=== PATIENT | male | born 1950 | race American Indian/Alaskan Native ===

== ENCOUNTER 2016-11-29 03:23 | Emergency (ER) | payer SELFPAY ==
[2016-11-29 03:32] VITALS: BP 160/100
[2016-11-29 04:05] LABS: Basophils % (Auto) 0.7 % (0.0-1.8); Eosinophils % (Auto) 1.4 % (0.0-4.3); Hematocrit 39.7 % (35.5-45.6); Hemoglobin 13.4 gm/dl (11.8-15.2); Mean Corpuscular HGB Conc 34 % (32-34); Mean Corpuscular Hemoglobin 32 pg (28-32); Mean Corpuscular Volume 95 fl (84-94); Platelet Count 210 K/mm3 (140-440); Red Cell Distribution Width 15.8 % (13.2-15.2); White Blood Count 5.9 K/mm3 (4.5-11.0)
[2016-11-29 04:07] LABS: Bilirubin,Urine NEG (Negative); Blood,Urine NEG (Negative); Ketones,Urine NEG (Negative); Leukocyte Esterase,Urine NEG (Negative); Mucus,Urine FEW /HPF; Nitrite,Urine NEG (Negative); Protein,Urine <15 mg/dL mg/dL (Negative); Urobilinogen,Urine < 2.0 mg/dL (<2.0)
[2016-11-29 04:11] LABS: Alanine Aminotransferase 101 units/L (7-56); Albumin 4.3 g/dL (3.9-5); Albumin/Globulin Ratio 1.3 %; Alkaline Phosphatase 86 units/L (35-129); Amylase 75 units/L (27-131); Anion Gap 21 mmol/L; Blood Urea Nitrogen 6 mg/dL (9-20); Calcium 8.8 mg/dL (8.4-10.2); Carbon Dioxide 23 mmol/L (22-30); Chloride 105.6 mmol/L (98-107); Glucose 110 mg/dL (75-100); Lipase 87 units/L (13-60); Potassium 4.7 mmol/L (3.6-5.0); Sodium 145 mmol/L (137-145); Total Protein 7.6 g/dL (6.3-8.2)
== END 2016-11-29 03:37 | disposition left against medical advice (07) ==
LOC: ED 03:23
DX: Z53.21 Procedure and treatment not carried out due to patient leaving prior to being seen by health care provider (principal)
CPT/HCPCS: 36415; 80053; 81001; 82150; 83690; 85025

== ENCOUNTER 2017-08-09 01:53 | Emergency (ER) | payer SELFPAY ==
[2017-08-09 02:54] VITALS: BP 139/87
[2017-08-09 03:22] LABS: Basophils # (Auto) 0.1 K/mm3 (0.0-0.1); Eosinophils # (Auto) 0.1 K/mm3 (0.0-0.4); Eosinophils % (Auto) 1.6 % (0.0-4.3); Hematocrit 41.3 % (35.5-45.6); Hemoglobin 13.7 gm/dl (11.8-15.2); Lymphocytes # (Auto) 2.7 K/mm3 (1.2-5.4); Lymphocytes % (Auto) 45.3 % (13.4-35.0); Mean Corpuscular HGB Conc 33 % (32-34); Mean Corpuscular Hemoglobin 32 pg (28-32); Mean Corpuscular Volume 96 fl (84-94); Monocytes # (Auto) 0.7 K/mm3 (0.0-0.8); Monocytes % (Auto) 11.1 % (0.0-7.3); Platelet Count 253 K/mm3 (140-440); Red Blood Count 4.32 M/mm3 (3.65-5.03); Red Cell Distribution Width 15.1 % (13.2-15.2)
[2017-08-09 03:57] LABS: Alanine Aminotransferase 94 units/L (7-56); Albumin 3.8 g/dL (3.9-5); BUN/Creatinine Ratio 12; Blood Urea Nitrogen 6 mg/dL (9-20); Calcium 8.7 mg/dL (8.4-10.2); Hemolysis Index 17
== END 2017-08-09 10:10 | disposition left against medical advice (07) ==
LOC: ED 01:53
DX: R10.9 Unspecified abdominal pain (principal); Z53.21 Procedure and treatment not carried out due to patient leaving prior to being seen by health care provider
CPT/HCPCS: 36415; 80053; 85025

== ENCOUNTER 2017-11-18 20:48 | Emergency (ER) | payer OTHER ==
[2017-11-18 21:05] VITALS: BP 125/91
[2017-11-18] MEDS ORDERED: ASPIRIN PO ONE (21:05)
[2017-11-18 21:25] LABS: Basophils # (Auto) 0.1 K/mm3 (0.0-0.1); Eosinophils # (Auto) 0.1 K/mm3 (0.0-0.4); Eosinophils % (Auto) 1.9 % (0.0-4.3); Hematocrit 38.4 % (35.5-45.6); Lymphocytes # (Auto) 2.7 K/mm3 (1.2-5.4); Lymphocytes % (Auto) 49.2 % (13.4-35.0); Mean Corpuscular HGB Conc 34 % (32-34); Mean Corpuscular Hemoglobin 32 pg (28-32); Mean Corpuscular Volume 96 fl (84-94); Monocytes # (Auto) 0.5 K/mm3 (0.0-0.8); Monocytes % (Auto) 9.4 % (0.0-7.3); Platelet Count 215 K/mm3 (140-440); Red Blood Count 4.02 M/mm3 (3.65-5.03); Red Cell Distribution Width 14.8 % (13.2-15.2)
[2017-11-18 21:46] LABS: BUN/Creatinine Ratio 9; Blood Urea Nitrogen 7 mg/dL (9-20); Calcium 9.2 mg/dL (8.4-10.2); Hemolysis Index 7
[2017-11-19] MEDS ORDERED: NORCO 5/325 PO ONE (01:43)
[2017-11-19] MEDS ORDERED: ASPIRIN ONE (01:52)
--- NOTE | 2017-11-19 02:33 | XRay Report ---
FINAL REPORT PROCEDURE: XR CHEST ROUTINE 2V TECHNIQUE: PA and lateral chest radiographs were obtained. CPT 26248 HISTORY: chest pain COMPARISON: No prior studies are available for comparison. FINDINGS: Heart: Normal. Mediastinum/Vessels: Normal. Lungs/Pleural space: Normal. Bony thorax: No acute osseous abnormality. Other: IMPRESSION: Normal examination.
--- NOTE | 2017-11-19 03:17 | Emergency Department Report ---
ED Chest Pain HPI - General Chief Complaint: Chest Pain Stated Complaint: CHEST,FOOT PAIN Time Seen by Provider: 11/19/17 01:40 Source: patient Mode of arrival: Ambulatory Limitations: No Limitations - History of Present Illness Initial Comments: Patient's a 67-year-old -Tong[place] male who presents with left neck pain radiating to left arm 1 month worsening over the past 3 days patient denies chest pain or shortness of breath no back pain and numbness denies fall injury or trauma pain described as 17 in spasm as "it gets so tight it feels like something is living in there" pain is exacerbated by movement and palpation pain is relieved by nothing child MD Complaint: chest pain Onset/Timin -: Gradual, month(s) Onset: during rest, awoke with symptoms Pain Location: left chest (left chest wall ) Pain Radiation: LUE, neck Severity: moderate Severity scale (0 -10): 3 Quality: tightness Consistency: intermittent Improves With: nothing Worsens With: palpation, movement re: denies: nausea, vomting, diaphoresis, dyspnea, sense of impending doom Other Symptoms: denies: cough, fever, syncope, acid taste in mouth, leg swelling , palpitations, burping Aspirin use within the Past 7 Days: (0) No - Related Data Previous Rx's Medication Instructions Recorded Last Taken Type Amoxicillin [Amoxicillin TAB] 875 mg PO BID #20 tablet 11/29/14 Unknown Rx Ranitidine HCl [Zantac 150 MG TAB] 150 mg PO Q12H #60 tablet 01/04/15 Unknown Rx Famotidine [Pepcid] 20 mg PO BID #30 tablet 09/04/15 Unknown Rx amLODIPine [Norvasc] 5 mg PO DAILY #15 tab 09/04/15 Unknown Rx Cyclobenzaprine [Flexeril] 10 mg PO TID PRN #20 tablet 06/06/16 Unknown Rx HYDROcodone/ACETAMINOPHEN [Vicodin 1 tab PO BID PRN #20 tablet 06/06/16 Unknown Rx HP 10-300 mg TAB] Acetaminophen [Tylenol] 975 mg PO QID PRN #60 capsule 11/19/17 Unknown Rx Cyclobenzaprine [Flexeril] 10 mg PO TID PRN #30 tablet 11/19/17 Unknown Rx Menthol/Camphor [[place] 1 applicatio TP TID PRN #1 tube 11/19/17 Unknown Rx Ointment] Allergies Allergy/AdvReac Type Severity Reaction Status Date / Time No Known Allergies Allergy Verified 08/09/17 02:54 Heart Score - HEART Score History: Slightly suspicious EKG: Normal Age: > 65 Risk factors: 1-2 risk factors Troponin: < normal limit HEART Score: 3 ED Review of Systems ROS: Stated complaint: CHEST,FOOT PAIN Other details as noted in HPI Constitutional: denies: chills, fever Eyes: denies: eye pain, eye discharge, vision change ENT: denies: ear pain, throat pain Respiratory: denies: cough, shortness of breath, wheezing Cardiovascular: chest pain Endocrine: no symptoms reported Gastrointestinal: denies: abdominal pain, nausea, diarrhea Genitourinary: denies: urgency, dysuria Musculoskeletal: myalgia. denies: back pain, joint swelling, arthralgia Skin: denies: rash, lesions Neurological: denies: headache, weakness, paresthesias Psychiatric: anxiety. denies: depression Hematological/Lymphatic: denies: easy bleeding, easy bruising ED Past Medical Hx - Past Medical History Hx Renal Disease: Yes (pt denies at present) Additional medical history: Alcoholism,gout - Surgical History Past Surgical History?: No - Family History Family history: hypertension - Social History Smoking Status: Current Every Day Smoker Substance Use Type: Alcohol - Medications Home Medications: Home Medications Medication Instructions Recorded Confirmed Last Taken Type Amoxicillin [Amoxicillin TAB] 875 mg PO BID #20 tablet 11/29/14 Unknown Rx Ranitidine HCl [Zantac 150 MG TAB] 150 mg PO Q12H #60 tablet 01/04/15 Unknown Rx Famotidine [Pepcid] 20 mg PO BID #30 tablet 09/04/15 Unknown Rx amLODIPine [Norvasc] 5 mg PO DAILY #15 tab 09/04/15 Unknown Rx Cyclobenzaprine [Flexeril] 10 mg PO TID PRN #20 tablet 06/06/16 Unknown Rx HYDROcodone/ACETAMINOPHEN [Vicodin 1 tab PO BID PRN #20 tablet 06/06/16 Unknown Rx HP 10-300 mg TAB] Acetaminophen [Tylenol] 975 mg PO QID PRN #60 capsule 11/19/17 Unknown Rx Cyclobenzaprine [Flexeril] 10 mg PO TID PRN #30 tablet 11/19/17 Unknown Rx Menthol/Camphor [[place] 1 applicatio TP TID PRN #1 tube 11/19/17 Unknown Rx Ointment] ED Physical Exam - General Limitations: No Limitations General appearance: alert, in no apparent distress - Head Head exam: Present: atraumatic, normocephalic - Eye Eye exam: Present: normal appearance, PERRL Pupils: Present: normal accommodation - ENT ENT exam: Present: normal orophraynx, mucous membranes moist, TM's normal bilaterally. Absent: normal external ear exam - Neck Neck exam: Present: normal inspection, tenderness (left posterior lateral neck muscle pain ), full ROM. Absent: meningismus, lymphadenopathy, thyromegaly - Expanded Neck Exam Expanded Neck exam: Present: tenderness (no posterior vertebral point tenderness rom intact including chin to chest bilat shoulders and f ull neck extension wtihth out). Absent: midline deformity, anterior neck swelling, thyroid mass, carotid bruit, tracheal deviation - Respiratory Respiratory exam: Present: normal lung sounds bilaterally, chest wall tenderness (left lateral chest wall tenderness no stepoff no crepius no ). Absent: respiratory distress, wheezes, stridor, accessory muscle use - Cardiovascular Cardiovascular Exam: Present: regular rate, normal rhythm, normal heart sounds. Absent: systolic murmur, diastolic murmur, rubs, gallop - GI/Abdominal GI/Abdominal exam: Present: soft, normal bowel sounds. Absent: tenderness, rebound, bruit, hernia - Rectal Rectal exam: Present: deferred - Extremities Exam Extremities exam: Present: normal inspection, full ROM, normal capillary refill. Absent: tenderness, pedal edema, joint swelling, calf tenderness - Expanded Upper Extremity Exam Left Shoulder Exam: Present: normal inspection, full ROM. Absent: tenderness, swelling, abrasion, laceration, ecchymosis, deformity, crepidus, dislocation, erythema, tenderness over AC joint Neuro motor exam: Present: wrist extension intact, thumb opposition intact, thumb IP flexion intact, thumb adduction intact, fingers 2-5 abduction intact Neurosensory exam: Present: 2-point discrimination, radial nerve intact, ulnar nerve intact, median nerve intact Vascular: Present: normal capillary refill, radial pulse, brachial pulse, ulnar pulse. Absent: vascular compromise, Pallo, pulse deficit radial art, pulse deficit ulnar art, pulse deficit brachial art - Back Exam Back exam: Present: normal inspection, full ROM. Absent: tenderness, CVA tenderness (R), CVA tenderness (L), muscle spasm, paraspinal tenderness, vertebral tenderness, rash noted - Neurological Exam Neurological exam: Present: alert, oriented X3, CN II-XII intact, normal gait, reflexes normal. Absent: motor sensory deficit - Psychiatric Psychiatric exam: Present: normal affect, normal mood - Skin Skin exam: Present: warm, dry, intact, normal color. Absent: rash ED Course Vital Signs 11/18/17 11/18/17 20:57 21:00 Temperature 98.8 F 98.8 F Pulse Rate 92 H 98 H Respiratory 18 18 Rate Blood Pressure 125/91 125/91 O2 Sat by Pulse 97 97 Oximetry RACHEL score - Rachel Score Age > 65: (1) Yes Aspirin use within the Past 7 Days: (0) No 3 or more CAD Risk Factors: (1) Yes 2 or more Angina events in past 24 hrs: (0) No Known CAD with more than 50% Stenosis: (0) No Elevated Cardiac Markers: (0) No ST Deviation Greater than 0.5mm: (0) No RACHEL Score: 2 ED Medical Decision Making - Lab Data Result diagrams: 11/18/17 21:15 11/18/17 21:15 - Radiology Data Radiology results: report reviewed, image reviewed no opacities no infiltrates - Medical Decision Making His neck spasm cardiac enzymes negative 2 less than 0.01 chest x-ray normal opacities no infiltrates EKG normal sinus rhythm no ST elevated CO pain is improved to 2/10 plan DC home prescriptions for NSAIDs muscle relaxants moist heat therapy patient will follow-up was also a [facility] in 2-3 days continue Tegretol other medications as prescribed patient verbalizes agreement and understanding same will be DC'd to home in stable condition at this time Critical care attestation.: If time is entered above; I have spent that time in minutes in the direct care of this critically ill patient, excluding procedure time. ED Disposition Clinical Impression: Chest wall pain, Neck muscle spasm Disposition: DC-01 TO HOME OR SELFCARE Is pt being admited?: No Does the pt Need Aspirin: No Condition: Good Instructions: Chest Pain (ED), Muscle Spasm (ED) Prescriptions: Acetaminophen [Tylenol] 975 mg PO QID PRN #60 capsule PRN Reason: Pain , Severe (7-10) Cyclobenzaprine [Flexeril] 10 mg PO TID PRN #30 tablet PRN Reason: Neck spasm Menthol/Camphor [[place] Ointment] 1 applicatio TP TID PRN #1 tube PRN Reason: pain Referrals: [facility] [Outside] - 3-5 Days Forms: Work/School Release Form(ED) Time of Disposition: 03:34
== END 2017-11-19 03:46 | disposition home or self-care (01) ==
LOC: ED 20:48
DX: M62.838 Other muscle spasm (principal); R07.89 Other chest pain; F17.200 Nicotine dependence, unspecified, uncomplicated; M10.9 Gout, unspecified; F10.20 Alcohol dependence, uncomplicated; Y90.9 Presence of alcohol in blood, level not specified
CPT/HCPCS: 36415; 71046; 80048; 84484; 85025; 93005; 93010; 99284

== ENCOUNTER 2017-12-26 14:47 | Emergency (ER) | payer SELFPAY ==
[2017-12-26 16:18] LABS: Hematocrit 35.6 % (35.5-45.6); Hemoglobin 11.9 gm/dl (11.8-15.2); Mean Corpuscular HGB Conc 34 % (32-34); Mean Corpuscular Hemoglobin 32 pg (28-32); Mean Corpuscular Volume 96 fl (84-94); Platelet Count 209 K/mm3 (140-440); Red Cell Distribution Width 15.3 % (13.2-15.2)
--- NOTE | 2017-12-26 16:30 | Emergency Department Report ---
ED Alcohol HPI - General Chief Complaint: Alcohol Stated Complaint: FALL/HEAD INJURY Time Seen by Provider: 12/26/17 16:29 Source: patient, EMS Mode of arrival: Stretcher Limitations: No Limitations - History of Present Illness Initial Comments: Patient can to the emergency room with left facial laceration after he fell today. He has been drinking alcohol and now he is drunk. 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 Previous Visits for Alcohol Intoxication?: Yes Recent Trauma: Yes Associated Symptoms: denies: nausea, vomiting, syncope Treatments Prior to Arrival: none - Related Data Previous Rx's Medication Instructions Recorded Last Taken Type Amoxicillin [Amoxicillin TAB] 875 mg PO BID #20 tablet 11/29/14 Unknown Rx Ranitidine HCl [Zantac 150 MG TAB] 150 mg PO Q12H #60 tablet 01/04/15 Unknown Rx Famotidine [Pepcid] 20 mg PO BID #30 tablet 09/04/15 Unknown Rx amLODIPine [Norvasc] 5 mg PO DAILY #15 tab 09/04/15 Unknown Rx Cyclobenzaprine [Flexeril] 10 mg PO TID PRN #20 tablet 06/06/16 Unknown Rx HYDROcodone/ACETAMINOPHEN [Vicodin 1 tab PO BID PRN #20 tablet 06/06/16 Unknown Rx HP 10-300 mg TAB] Acetaminophen [Tylenol] 975 mg PO QID PRN #60 capsule 11/19/17 Unknown Rx Cyclobenzaprine [Flexeril] 10 mg PO TID PRN #30 tablet 11/19/17 Unknown Rx Menthol/Camphor [[place] 1 applicatio TP TID PRN #1 tube 11/19/17 Unknown Rx Ointment] cephALEXin [Keflex] 500 mg PO Q8HR #21 cap 12/26/17 Unknown Rx Allergies Allergy/AdvReac Type Severity Reaction Status Date / Time No Known Allergies Allergy Verified 08/09/17 02:54 ED Review of Systems ROS: Stated complaint: FALL/HEAD INJURY Other details as noted in HPI Comment: All other systems reviewed and negative Constitutional: denies: chills, fever Eyes: denies: eye pain ENT: denies: ear pain Respiratory: denies: cough, shortness of breath, SOB with exertion, SOB at rest Cardiovascular: denies: chest pain, palpitations, dyspnea on exertion Endocrine: no symptoms reported Gastrointestinal: denies: abdominal pain, nausea, vomiting, diarrhea Genitourinary: denies: urgency, dysuria, frequency Musculoskeletal: denies: back pain Skin: as per HPI, other (Facial Laceration). denies: rash Neurological: denies: headache, weakness, numbness, paresthesias Psychiatric: denies: anxiety, depression Hematological/Lymphatic: denies: easy bleeding, easy bruising ED Past Medical Hx - Past Medical History Previous Medical History?: Yes Hx Renal Disease: Yes (pt denies at present) Additional medical history: Alcoholism,gout - Social History Smoking Status: Current Every Day Smoker Substance Use Type: Alcohol - Medications Home Medications: Home Medications Medication Instructions Recorded Confirmed Last Taken Type Amoxicillin [Amoxicillin TAB] 875 mg PO BID #20 tablet 11/29/14 Unknown Rx Ranitidine HCl [Zantac 150 MG TAB] 150 mg PO Q12H #60 tablet 01/04/15 Unknown Rx Famotidine [Pepcid] 20 mg PO BID #30 tablet 09/04/15 Unknown Rx amLODIPine [Norvasc] 5 mg PO DAILY #15 tab 09/04/15 Unknown Rx Cyclobenzaprine [Flexeril] 10 mg PO TID PRN #20 tablet 06/06/16 Unknown Rx HYDROcodone/ACETAMINOPHEN [Vicodin 1 tab PO BID PRN #20 tablet 06/06/16 Unknown Rx HP 10-300 mg TAB] Acetaminophen [Tylenol] 975 mg PO QID PRN #60 capsule 11/19/17 Unknown Rx Cyclobenzaprine [Flexeril] 10 mg PO TID PRN #30 tablet 11/19/17 Unknown Rx Menthol/Camphor [[place] 1 applicatio TP TID PRN #1 tube 11/19/17 Unknown Rx Ointment] cephALEXin [Keflex] 500 mg PO Q8HR #21 cap 12/26/17 Unknown Rx ED Physical Exam - General Limitations: No Limitations General appearance: in no apparent distress, lethargic - Head Head exam: Present: other (Left facial laceration) - Eye Eye exam: Present: normal appearance, PERRL, EOMI Pupils: Present: normal accommodation - ENT ENT exam: Present: normal exam, normal orophraynx, mucous membranes moist - Neck Neck exam: Present: normal inspection, tenderness, full ROM - Respiratory Respiratory exam: Present: normal lung sounds bilaterally. Absent: respiratory distress, wheezes, rales, rhonchi, stridor - Cardiovascular Cardiovascular Exam: Present: regular rate, normal rhythm, normal heart sounds - GI/Abdominal GI/Abdominal exam: Present: soft, normal bowel sounds. Absent: distended, tenderness, guarding, rebound, rigid - Extremities Exam Extremities exam: Present: normal inspection, full ROM, normal capillary refill. Absent: tenderness - Back Exam Back exam: Present: normal inspection, full ROM. Absent: tenderness - Neurological Exam Neurological exam: Present: alert, oriented X3 - Psychiatric Psychiatric exam: Present: normal affect, normal mood - Skin Skin exam: Present: warm, dry, normal color, other (4 cm Left facial laceration. ). Absent: rash ED Course Vital Signs 12/26/17 12/26/17 12/26/17 14:57 16:00 17:00 Temperature 97.6 F Pulse Rate 78 Respiratory 16 Rate Blood Pressure 107/74 122/80 116/71 O2 Sat by Pulse 99 100 Oximetry 12/26/17 20:06 Temperature Pulse Rate 76 Respiratory 16 Rate Blood Pressure 129/86 O2 Sat by Pulse Oximetry - Reevaluation(s) Reevaluation #1: 12/26/17 21:53 Patient is awake and coherent in the ED. He was able to answer all my questions. He is clinically sober from my medical examination. He will be discharged home in the custody of his Costume Designer. I strongly encouraged him to stop drinking alcohol. - Laceration /Wound Repair Left Upper Face Wound Location: face Wound Length (cm): 4 Wound's Depth, Shape: superficial Wound Explored: clean Irrigated w/ Saline (ccs): 250 Betadine Prep?: Yes Anesthesia: Lidocaine w/ Epi Volume Anesthetic (ccs): 4 Wound Debrided: None Wound Repaired With: sutures Suture Size/Type: 4:0, proline Number of Sutures: 5 Layer Closure?: No Sterile Dressing Applied?: Yes (Bacitracin Ointment) ED Medical Decision Making - Lab Data Result diagrams: 12/26/17 16:08 12/26/17 16:08 Lab Results 12/26/17 12/26/17 12/26/17 Range/Units 15:00 15:00 16:08 WBC 5.5 (4.5-11.0) K/mm3 RBC 3.70 (3.65-5.03) M/mm3 Hgb 11.9 (11.8-15.2) gm/dl Hct 35.6 (35.5-45.6) % MCV 96 H (84-94) fl MCH 32 (28-32) pg MCHC 34 (32-34) % RDW 15.3 H (13.2-15.2) % Plt Count 209 (140-440) K/mm3 PT (12.2-14.9) Sec. INR (0.87-1.13) APTT (24.2-36.6) Sec. Sodium (137-145) mmol/L Potassium (3.6-5.0) mmol/L Chloride (98-107) mmol/L Carbon Dioxide (22-30) mmol/L Anion Gap mmol/L BUN (9-20) mg/dL Creatinine (0.8-1.5) mg/dL Estimated GFR ml/min BUN/Creatinine Ratio % Glucose (75-100) mg/dL Calcium (8.4-10.2) mg/dL Total Bilirubin (0.1-1.2) mg/dL Direct Bilirubin (0-0.2) mg/dL Indirect Bilirubin mg/dL AST (5-40) units/L ALT (7-56) units/L Alkaline Phosphatase (35-129) units/L Total Protein (6.3-8.2) g/dL Albumin (3.9-5) g/dL Albumin/Globulin Ratio % Urine Color Yellow (Yellow) Urine Turbidity Clear (Clear) Urine pH 5.0 (5.0-7.0) Ur Specific [place] 1.004 (1.003-1.030) Urine Protein <15 mg/dl (Negative) mg/dL Urine Glucose (UA) Neg (Negative) mg/dL Urine Ketones Neg (Negative) mg/dL Urine Blood Neg (Negative) Urine Nitrite Neg (Negative) Urine Bilirubin Neg (Negative) Urine Urobilinogen < 2.0 (<2.0) mg/dL Ur Leukocyte Esterase Neg (Negative) Urine WBC (Auto) < 1.0 (0.0-6.0) /HPF Urine RBC (Auto) 1.0 (0.0-6.0) /HPF Urine Mucus Few /HPF Urine Opiates Screen Presumptive negative Urine Methadone Screen Presumptive negative Ur Barbiturates Screen Presumptive negative Ur Phencyclidine Scrn Presumptive negative Ur Amphetamines Screen Presumptive negative U Benzodiazepines Scrn Presumptive negative Urine Cocaine Screen Presumptive negative U Marijuana (THC) Screen Presumptive negative Drugs of Abuse Note Disclamer Plasma/Serum Alcohol (0-0.07) % 12/26/17 12/26/17 12/26/17 Range/Units 16:08 16:08 17:19 WBC (4.5-11.0) K/mm3 RBC (3.65-5.03) M/mm3 Hgb (11.8-15.2) gm/dl Hct (35.5-45.6) % MCV (84-94) fl MCH (28-32) pg MCHC (32-34) % RDW (13.2-15.2) % Plt Count (140-440) K/mm3 PT 13.2 (12.2-14.9) Sec. INR 0.95 (0.87-1.13) APTT 25.7 (24.2-36.6) Sec. Sodium 139 (137-145) mmol/L Potassium 3.4 L (3.6-5.0) mmol/L Chloride 103.0 (98-107) mmol/L Carbon Dioxide 21 L (22-30) mmol/L Anion Gap 18 mmol/L BUN 8 L (9-20) mg/dL Creatinine 0.5 L (0.8-1.5) mg/dL Estimated GFR > 60 ml/min BUN/Creatinine Ratio 16 % Glucose 117 H (75-100) mg/dL Calcium 8.5 (8.4-10.2) mg/dL Total Bilirubin (0.1-1.2) mg/dL Direct Bilirubin (0-0.2) mg/dL Indirect Bilirubin mg/dL AST (5-40) units/L ALT (7-56) units/L Alkaline Phosphatase (35-129) units/L Total Protein (6.3-8.2) g/dL Albumin (3.9-5) g/dL Albumin/Globulin Ratio % Urine Color (Yellow) Urine Turbidity (Clear) Urine pH (5.0-7.0) Ur Specific [place] (1.003-1.030) Urine Protein (Negative) mg/dL Urine Glucose (UA) (Negative) mg/dL Urine Ketones (Negative) mg/dL Urine Blood (Negative) Urine Nitrite (Negative) Urine Bilirubin (Negative) Urine Urobilinogen (<2.0) mg/dL Ur Leukocyte Esterase (Negative) Urine WBC (Auto) (0.0-6.0) /HPF Urine RBC (Auto) (0.0-6.0) /HPF Urine Mucus /HPF Urine Opiates Screen Urine Methadone Screen Ur Barbiturates Screen Ur Phencyclidine Scrn Ur Amphetamines Screen U Benzodiazepines Scrn Urine Cocaine Screen U Marijuana (THC) Screen Drugs of Abuse Note Plasma/Serum Alcohol 0.38 H (0-0.07) % 12/26/17 Range/Units 18:11 WBC (4.5-11.0) K/mm3 RBC (3.65-5.03) M/mm3 Hgb (11.8-15.2) gm/dl Hct (35.5-45.6) % MCV (84-94) fl MCH (28-32) pg MCHC (32-34) % RDW (13.2-15.2) % Plt Count (140-440) K/mm3 PT (12.2-14.9) Sec. INR (0.87-1.13) APTT (24.2-36.6) Sec. Sodium (137-145) mmol/L Potassium (3.6-5.0) mmol/L Chloride (98-107) mmol/L Carbon Dioxide (22-30) mmol/L Anion Gap mmol/L BUN (9-20) mg/dL Creatinine (0.8-1.5) mg/dL Estimated GFR ml/min BUN/Creatinine Ratio % Glucose (75-100) mg/dL Calcium (8.4-10.2) mg/dL Total Bilirubin 0.40 (0.1-1.2) mg/dL Direct Bilirubin < 0.2 (0-0.2) mg/dL Indirect Bilirubin 0.2 mg/dL AST 409 H (5-40) units/L ALT 348 H (7-56) units/L Alkaline Phosphatase 118 (35-129) units/L Total Protein 7.0 (6.3-8.2) g/dL Albumin 3.9 (3.9-5) g/dL Albumin/Globulin Ratio 1.3 % Urine Color (Yellow) Urine Turbidity (Clear) Urine pH (5.0-7.0) Ur Specific [place] (1.003-1.030) Urine Protein (Negative) mg/dL Urine Glucose (UA) (Negative) mg/dL Urine Ketones (Negative) mg/dL Urine Blood (Negative) Urine Nitrite (Negative) Urine Bilirubin (Negative) Urine Urobilinogen (<2.0) mg/dL Ur Leukocyte Esterase (Negative) Urine WBC (Auto) (0.0-6.0) /HPF Urine RBC (Auto) (0.0-6.0) /HPF Urine Mucus /HPF Urine Opiates Screen Urine Methadone Screen Ur Barbiturates Screen Ur Phencyclidine Scrn Ur Amphetamines Screen U Benzodiazepines Scrn Urine Cocaine Screen U Marijuana (THC) Screen Drugs of Abuse Note Plasma/Serum Alcohol (0-0.07) % - Radiology Data Radiology results: report reviewed, image reviewed I reviewed the CT scan of the head and cervical spine and also the chest x-ray. The imaging studies shows no acute findings. - Medical Decision Making Patient presented to the ED with fall after being drunk. His evaluation showed that he sustained a left facial laceration which was repaired in the ED. Imaging studies were negative. Patient was given banana bag, IV fluids, antibiotics and his tetanus was updated. He woke up he was coherent and was able to walk in a straight line. The patient Costume Designer came to the emergency room to take him home to his . He will be discharged in the custody of his Costume Designer in a stable medical condition. Critical Care Time: Yes Critical care time in (mins) excluding proc time.: 45 Critical care attestation.: If time is entered above; I have spent that time in minutes in the direct care of this critically ill patient, excluding procedure time. ED Disposition Clinical Impression: Alcohol abuse Alcohol intoxication Qualifiers: Complication of substance-induced condition: uncomplicated Qualified Code(s): F10.920 - Alcohol use, unspecified with intoxication, uncomplicated Face lacerations Qualifiers: Encounter type: initial encounter Qualified Code(s): S01.81XA - Laceration without foreign body of other part of head, initial encounter Disposition: DC-01 TO HOME OR SELFCARE Is pt being admited?: No Does the pt Need Aspirin: No Condition: Stable Instructions: Suture Care (ED), Laceration (ED), Alcohol Intoxication (ED), Abuse of Alcohol (ED) Additional Instructions: Please follow up with Dr Catie Mederos in 3 days for wound check or return to the ED for wound check. Return to the ED if your condition worsens. Prescriptions: cephALEXin [Keflex] 500 mg PO Q8HR #21 cap Referrals: PRIMARY CARE, [Primary Care Provider] - 3-5 Days MITALI MEDEROS MD [Staff Physician] - 3-5 Days Time of Disposition: 21:45
[2017-12-26 16:37] LABS: BUN/Creatinine Ratio 16; Blood Urea Nitrogen 8 mg/dL (9-20); Calcium 8.5 mg/dL (8.4-10.2); Hemolysis Index 11
[2017-12-26 16:58] LABS: Bilirubin,Urine NEG (Negative); Blood,Urine NEG (Negative); Color,Urine Yellow (Yellow); Mucus,Urine FEW /HPF; Protein,Urine <15 mg/dL mg/dL (Negative); Urobilinogen,Urine < 2.0 mg/dL (<2.0); WBC,Urine < 1.0 /HPF (0.0-6.0)
[2017-12-26 17:05] LABS: Amphetamine Screen,Urine PRESUMPTIVE NEGATIVE; Benzodiazepines Screen,Urine PRESUMPTIVE NEGATIVE; Cannabinoid Screen,Urine PRESUMPTIVE NEGATIVE; Cocaine Screen,Urine PRESUMPTIVE NEGATIVE; Methadone Screen,Urine PRESUMPTIVE NEGATIVE; Opiate Screen,Urine PRESUMPTIVE NEGATIVE
[2017-12-26] MEDS ORDERED: VITAMIN B-1 100 MG, FOLVITE 1 MG, INFUVITE 10 ML in NACL 0.9% 1000 ML 1,000 ML IV ONE (17:08)
[2017-12-26] MEDS ORDERED: NACL 0.9% 1000 ML 1,000 ML IV ONE (17:10)
[2017-12-26] MEDS ORDERED: POLYSPORIN TP ONE (17:11)
--- NOTE | 2017-12-26 17:43 | XRay Report ---
FINAL REPORT EXAM: XR CHEST 1V AP HISTORY: cough TECHNIQUE: Single, portable chest x-ray. PRIORS: 19 November 2017. FINDINGS: Patient rotated to the right. Cardiac and mediastinal silhouette within normal limits. Lungs are hypoinflated, with probable mild bibasilar atelectasis or scarring. No significant vascular congestion, focal consolidation or apparent pneumothorax. Bony thorax grossly unremarkable. IMPRESSION: 1. Hypoinflation. No acute consolidation.
[2017-12-26 17:48] LABS: INR 0.95 (0.87-1.13); Partial Thromboplastin Time 25.7 Sec. (24.2-36.6)
[2017-12-26] MEDS ORDERED: XYLOCAINE 1%/ EPI 1:100,000 INFILTRATI NR (18:00)
[2017-12-26] MEDS ORDERED: BOOSTRIX IM ONE ×2 (18:00→20:54)
[2017-12-26] MEDS ORDERED: NACL 0.9% 500 ML IR ONE (18:05)
--- NOTE | 2017-12-26 18:29 | Cat Scan Report ---
FINAL REPORT EXAM: CT HEAD/BRAIN WO CON HISTORY: Head injury TECHNIQUE: Noncontrast CT axial images of the brain. PRIORS: None. FINDINGS: No parenchymal mass, mass effect, hemorrhage, midline shift or hydrocephalus. No evidence of acute cortical infarct. No abnormal, extra-axial fluid or air collection. Mild, patchy low density in the periventricular and subcortical white matter is nonspecific, but may relate to chronic small vessel ischemic change. More focal encephalomalacic change in the bilateral subfrontal regions of gyrus recti. Mild-moderate volume loss. Osseous calvarium grossly intact. IMPRESSION: 1. No acute intracranial findings. 2. Chronic ischemic and atrophic changes.
[2017-12-26] MEDS ORDERED: ANCEF/NS 1 GM/50 ML 1 GM/50 ML BAG IV ONE (18:30)
--- NOTE | 2017-12-26 18:31 | Cat Scan Report ---
FINAL REPORT EXAM: CT CERVICAL SPINE WO CON HISTORY: Fall, neck pain TECHNIQUE: Spiral CT scanning of the cervical spine, with axial images and multiplanar reformations. PRIORS: None. FINDINGS: Multilevel degenerative disc disease and spondylosis. No acute compression deformity or gross malalignment of cervical vertebral bodies. No acute fracture identified. No acute, osseous central spinal canal encroachment. Paraspinal soft tissues grossly unremarkable. Emphysematous change in the visualized upper lungs. IMPRESSION: 1. No acute compression deformity or apparent fracture in the cervical spine. 2. Degenerative spondylosis.
[2017-12-26 18:43] LABS: Alanine Aminotransferase 348 units/L (7-56); Albumin 3.9 g/dL (3.9-5)
[2017-12-26 18:47] LABS: Bilirubin,Direct < 0.2 mg/dL (0-0.2)
[2017-12-26] MEDS ORDERED: TRIPLE ANTIBIOTIC TP ONE (20:31)
[2017-12-26 22:09] VITALS: BP 159/94
== END 2017-12-26 22:12 | disposition home or self-care (01) ==
LOC: ED 14:47
DX: S01.81XA Laceration without foreign body of other part of head, initial encounter (principal); F10.920 Alcohol use, unspecified with intoxication, uncomplicated; F17.200 Nicotine dependence, unspecified, uncomplicated; Z79.899 Other long term (current) drug therapy; W19.XXXA Unspecified fall, initial encounter; Y93.89 Activity, other specified; Y92.89 Other specified places as the place of occurrence of the external cause; Y99.8 Other external cause status
CPT/HCPCS: 12013; 36415; 70450; 71045; 72125; 80048; 80074; 80307; 81001; 85027; 85610; 85730; 90471; 90715; 96365; 96367; 99291; G0480; J0690; J3411; J7030; 80320; A6250

== ENCOUNTER 2018-01-03 04:27 | Emergency (ER) | payer SELFPAY ==
[2018-01-03 04:33] VITALS: BP 179/106
--- NOTE | 2018-01-03 06:03 | Emergency Department Report ---
Suture/Staple Removal - [facility] Chief Complaint: Laceration/Recheck/Suture Stated Complaint: SUTURES REMOVEAL Time Seen by Provider: 01/03/18 05:54 When Sutures or Delta Placed: 5-7 Days Ago Wound Location: left side of face near eye. ED Review of Systems ROS: Stated complaint: SUTURES REMOVEAL Other details as noted in HPI Constitutional: denies: chills, fever Eyes: denies: eye pain, eye discharge, vision change ENT: denies: ear pain, throat pain Respiratory: denies: cough, shortness of breath, wheezing Cardiovascular: denies: chest pain, palpitations Endocrine: no symptoms reported Gastrointestinal: denies: abdominal pain, nausea, diarrhea Genitourinary: denies: urgency, dysuria Musculoskeletal: denies: back pain, joint swelling, arthralgia Skin: denies: rash, lesions Neurological: denies: headache, weakness, paresthesias Psychiatric: denies: anxiety, depression Hematological/Lymphatic: denies: easy bleeding, easy bruising ED Past Medical Hx - Past Medical History Previous Medical History?: Yes Hx Renal Disease: Yes (pt denies at present) Additional medical history: Alcoholism,gout - Surgical History Past Surgical History?: No - Social History Smoking Status: Current Every Day Smoker Substance Use Type: Alcohol - Medications Home Medications: Home Medications Medication Instructions Recorded Confirmed Last Taken Type Amoxicillin [Amoxicillin TAB] 875 mg PO BID #20 tablet 11/29/14 Unknown Rx Ranitidine HCl [Zantac 150 MG TAB] 150 mg PO Q12H #60 tablet 01/04/15 Unknown Rx Famotidine [Pepcid] 20 mg PO BID #30 tablet 09/04/15 Unknown Rx amLODIPine [Norvasc] 5 mg PO DAILY #15 tab 09/04/15 Unknown Rx Cyclobenzaprine [Flexeril] 10 mg PO TID PRN #20 tablet 06/06/16 Unknown Rx HYDROcodone/ACETAMINOPHEN [Vicodin 1 tab PO BID PRN #20 tablet 06/06/16 Unknown Rx HP 10-300 mg TAB] Acetaminophen [Tylenol] 975 mg PO QID PRN #60 capsule 11/19/17 Unknown Rx Cyclobenzaprine [Flexeril] 10 mg PO TID PRN #30 tablet 11/19/17 Unknown Rx Menthol/Camphor [[place] 1 applicatio TP TID PRN #1 tube 11/19/17 Unknown Rx Ointment] cephALEXin [Keflex] 500 mg PO Q8HR #21 cap 12/26/17 Unknown Rx Suture Removal Exam - Exam General: Vital signs noted. No distress. Alert and acting appropriately. Wound: No Pathologic Erythema, No Tenderness, No Drainage, No Pus, No Wound Dehiscence Other Systems: All other systems reviewed and are unremarkable. ED Course Vital Signs 01/03/18 04:32 Temperature 97.8 F Pulse Rate 76 Respiratory 16 Rate Blood Pressure 179/106 O2 Sat by Pulse 100 Oximetry ED Recheck MDM - Differential Diagnosis Suture/Staple Removal - Medical Decision Making patient has been seen by this provider. Sutures removed. Critical care attestation.: If time is entered above; I have spent that time in minutes in the direct care of this critically ill patient, excluding procedure time. ED Disposition Clinical Impression: Visit for suture removal Disposition: DC-01 TO HOME OR SELFCARE Is pt being admited?: No Does the pt Need Aspirin: No Condition: Stable Instructions: Suture Removal (ED) Referrals: PRIMARY CARE, [Primary Care Provider] - 3-5 Days
== END 2018-01-03 06:01 | disposition home or self-care (01) ==
LOC: ED 04:27
DX: S01.81XD Laceration without foreign body of other part of head, subsequent encounter (principal); F17.200 Nicotine dependence, unspecified, uncomplicated; X58.XXXD Exposure to other specified factors, subsequent encounter

== ENCOUNTER 2018-04-09 19:04 | Emergency (ER) | payer SELFPAY ==
[2018-04-09 19:22] VITALS: BP 118/78
[2018-04-09] MEDS ORDERED: DELTASONE PO ONE (20:10)
[2018-04-09] MEDS ORDERED: IBUPROFEN PO ONE (20:10)
--- NOTE | 2018-04-09 20:10 | Emergency Department Report ---
ED Neck Pain/Injury HPI - General Chief Complaint: Neck Pain/Injury Stated Complaint: CHEST PAIN,NECK PAIN Time Seen by Provider: 04/09/18 20:09 Source: patient Mode of arrival: Ambulatory Limitations: No Limitations - History of Present Illness Initial Comments: This is a 67-year-old male who reported that he is having neck pain that started this morning to left side of that that radiates to his left shoulder. This is been going on for 1 year. He reported in triage that he was having chest pain but he denies any chest pain at present. He said he has chest pain on and off but he is not having any and he has not had any for over 3 week he just figure that since he is here he did get checked out. Said his chest pain has been on and off for 5 months. Denies any nausea vomiting. He has a history of alcoholism and gout. Denies any pain medication. He is reporting pain is achy and 9 on a 10 and no alleviating factors. Exacerbated by movement. MD Complaint: neck pain (left neck) Onset/Timin -: year(s) Place: home Radiation: left shoulder Severity: severe, intermittent, similar to prior neck shana Severity scale (0 -10): 9 Quality: aching Consistency: intermittent Improves With: none Worsens With: movement of neck Context: unknown Associated Symptoms: denies: headache, fever, numbness, tingling, weakness, vertigo, difficulty walking, swollen glands, difficulty swallowing, nausea, vomiting Treatments Prior to Arrival: Ibuprofen - Related Data Previous Rx's Medication Instructions Recorded Last Taken Type Amoxicillin [Amoxicillin TAB] 875 mg PO BID #20 tablet 11/29/14 Unknown Rx Ranitidine HCl [Zantac 150 MG TAB] 150 mg PO Q12H #60 tablet 01/04/15 Unknown Rx Famotidine [Pepcid] 20 mg PO BID #30 tablet 09/04/15 Unknown Rx amLODIPine [Norvasc] 5 mg PO DAILY #15 tab 09/04/15 Unknown Rx Cyclobenzaprine [Flexeril] 10 mg PO TID PRN #20 tablet 06/06/16 Unknown Rx HYDROcodone/ACETAMINOPHEN [Vicodin 1 tab PO BID PRN #20 tablet 06/06/16 Unknown Rx HP 10-300 mg TAB] Acetaminophen [Tylenol] 975 mg PO QID PRN #60 capsule 11/19/17 Unknown Rx Cyclobenzaprine [Flexeril] 10 mg PO TID PRN #30 tablet 11/19/17 Unknown Rx Menthol/Camphor [[place] 1 applicatio TP TID PRN #1 tube 11/19/17 Unknown Rx Ointment] cephALEXin [Keflex] 500 mg PO Q8HR #21 cap 12/26/17 Unknown Rx Naproxen [Naprosyn] 500 mg PO BID PRN #12 tablet 04/09/18 Unknown Rx Allergies Allergy/AdvReac Type Severity Reaction Status Date / Time No Known Allergies Allergy Verified 08/09/17 02:54 ED Review of Systems ROS: Stated complaint: CHEST PAIN,NECK PAIN Other details as noted in HPI Constitutional: denies: chills, fever ENT: denies: ear pain, throat pain, congestion Respiratory: denies: cough, shortness of breath, SOB with exertion, wheezing Cardiovascular: denies: chest pain, palpitations, edema, syncope Gastrointestinal: denies: abdominal pain, nausea, vomiting, diarrhea, constipation, hematemesis, hematochezia Genitourinary: denies: dysuria, hematuria Musculoskeletal: arthralgia, myalgia. denies: back pain, joint swelling Skin: denies: rash Neurological: denies: headache, numbness, paresthesias, confusion, abnormal gait, vertigo ED Past Medical Hx - Past Medical History Previous Medical History?: Yes Hx Renal Disease: Yes (pt denies at present) Hx HIV: No Additional medical history: Alcoholism,gout - Surgical History Past Surgical History?: Yes Additional Surgical History: YOUSIF - Family History Family history: hypertension - Social History Smoking Status: Current Every Day Smoker Substance Use Type: Alcohol - Medications Home Medications: Home Medications Medication Instructions Recorded Confirmed Last Taken Type Amoxicillin [Amoxicillin TAB] 875 mg PO BID #20 tablet 11/29/14 Unknown Rx Ranitidine HCl [Zantac 150 MG TAB] 150 mg PO Q12H #60 tablet 01/04/15 Unknown Rx Famotidine [Pepcid] 20 mg PO BID #30 tablet 09/04/15 Unknown Rx amLODIPine [Norvasc] 5 mg PO DAILY #15 tab 09/04/15 Unknown Rx Cyclobenzaprine [Flexeril] 10 mg PO TID PRN #20 tablet 06/06/16 Unknown Rx HYDROcodone/ACETAMINOPHEN [Vicodin 1 tab PO BID PRN #20 tablet 06/06/16 Unknown Rx HP 10-300 mg TAB] Acetaminophen [Tylenol] 975 mg PO QID PRN #60 capsule 11/19/17 Unknown Rx Cyclobenzaprine [Flexeril] 10 mg PO TID PRN #30 tablet 11/19/17 Unknown Rx Menthol/Camphor [[place] 1 applicatio TP TID PRN #1 tube 11/19/17 Unknown Rx Ointment] cephALEXin [Keflex] 500 mg PO Q8HR #21 cap 12/26/17 Unknown Rx Naproxen [Naprosyn] 500 mg PO BID PRN #12 tablet 04/09/18 Unknown Rx ED Physical Exam - General Limitations: No Limitations General appearance: alert, in no apparent distress - Head Head exam: Present: atraumatic, normocephalic, normal inspection, other (normal exam) - Eye Eye exam: Present: normal appearance, PERRL, EOMI Pupils: Present: normal accommodation - ENT ENT exam: Present: normal exam, normal orophraynx, mucous membranes moist, TM's normal bilaterally, normal external ear exam - Neck Neck exam: Present: normal inspection, full ROM, other (no C-spine tenderness). Absent: tenderness, meningismus, lymphadenopathy - Expanded Neck Exam Expanded Neck exam: Absent: tenderness, midline deformity, anterior neck swelling, tracheal deviation - Respiratory Respiratory exam: Present: normal lung sounds bilaterally. Absent: respiratory distress, chest wall tenderness - Cardiovascular Cardiovascular Exam: Present: regular rate, normal rhythm, normal heart sounds. Absent: systolic murmur, diastolic murmur - GI/Abdominal GI/Abdominal exam: Present: soft, normal bowel sounds. Absent: distended, tenderness, guarding, rebound, rigid, organomegaly, mass, bruit, pulsatile mass - Back Exam Back exam: Present: normal inspection, full ROM, other (ambulates without any difficulties). Absent: tenderness, CVA tenderness (R), CVA tenderness (L), muscle spasm, paraspinal tenderness, vertebral tenderness, rash noted - Expanded Back Exam Expanded Back exam: Absent: saddle anesthesia Back exam: Negative Straight Leg Raising: Left, Right - Neurological Exam Neurological exam: Present: alert, oriented X3, normal gait, reflexes normal. Absent: motor sensory deficit - Psychiatric Psychiatric exam: Present: normal affect, normal mood - Skin Skin exam: Present: warm, dry, intact, normal color. Absent: rash ED Course Vital Signs 04/09/18 19:20 Temperature 98.0 F Pulse Rate 86 Respiratory 16 Rate Blood Pressure 118/78 O2 Sat by Pulse 99 Oximetry Vital Signs 04/09/18 19:20 Temperature 98.0 F Pulse Rate 86 Respiratory 16 Rate Blood Pressure 118/78 O2 Sat by Pulse 99 Oximetry - Reevaluation(s) Reevaluation #1: 04/09/18 21:54 Patient given Motrin 800 mg by mouth Deltasone 60 mg by mouth for pain which relieved his pain. CT scan of C-spine negative findings except for degenerative disc disease ED Medical Decision Making - Lab Data Result diagrams: 04/09/18 20:23 Lab Results 04/09/18 Range/Units 20:23 Sodium 146 H (137-145) mmol/L Potassium 4.4 (3.6-5.0) mmol/L Chloride 106.9 (98-107) mmol/L Carbon Dioxide 25 (22-30) mmol/L Anion Gap 19 mmol/L BUN 9 (9-20) mg/dL Creatinine 1.0 (0.8-1.5) mg/dL Estimated GFR > 60 ml/min BUN/Creatinine Ratio 9 % Glucose 121 H (75-100) mg/dL Calcium 8.8 (8.4-10.2) mg/dL Troponin T < 0.010 (0.00-0.029) ng/mL - EKG Data -: EKG Interpreted by Me (EKG interpreted by attending physician.) EKG shows normal: sinus rhythm Rate: normal - Radiology Data Radiology results: report reviewed CT scan of C-spine revealed degenerative disc disease otherwise no acute findings. Findings [facility] [address] [place] [address] XRay Report Signed Patient: LYDIA DOZIER MR#: [id number] : 1950 Acct:[id number] Age/Sex: 67 / M ADM Date: 04/09/18 Loc: ED Attending Dr: Ordering Physician: SLICK GUTIERREZ Date of Service: 04/09/18 Procedure(s): XR spine cervical 2-3V Accession Number(s): [id number] cc: SLICK GUTIERREZ Fluoro Time In Minutes: FINAL REPORT PROCEDURE: XR SPINE CERVICAL 2-3V TECHNIQUE: Cervical spine, three views HISTORY: C-spine pain COMPARISON: No prior studies are available for comparison. FINDINGS: Vertebral body heights and alignment are maintained. There are degenerative disc changes at C4-5 and C5-6, with anterior osteophyte formation. Prevertebral soft tissues are within normal limits. IMPRESSION: No acute osseous abnormality is seen Transcribed By: [facility] Dictated By: NELLA BEAR M.D. Electronically Authenticated By: NELLA BEAR M.D. Signed Date/Time: 04/09/182138 DD/ 40 TD/TT: 04/09/18 2 - Medical Decision Making This is a 67-year-old male here complaining of neck pain that got worse this morning but going on for 1 year. He reported to triage nurse that he is had gus st pain for 5 months but he has not had any in a couple weeks and he just wanted everything taken care of. Patient had BMP which shows sodium is mildly elevated at 146 he also had troponin done which is negative EKG shows sinus rhythm at 83 bpm with no acute findings. CT scan of C-spine with no acute finding except he has degenerative disc disease. This is explained to patient in detail along what his lab work and he was understanding and I discussed that he needs to follow-up with orthopedics, primary care and ladies' locker room attendant for chronic chest pain. He voiced understanding and. Patient decision was condition with prescription for naproxen. Vital signs stable with a febrile. Pain relief with Deltasone 60 mg by mouth and Motrin 800 mg by mouth. - Differential Diagnosis fracture versus subluxation versus strain versus degenerative this disease Critical care attestation.: If time is entered above; I have spent that time in minutes in the direct care of this critically ill patient, excluding procedure time. ED Disposition Clinical Impression: Cervical radiculopathy due to degenerative joint disease of spine, Chronic chest pain Disposition: - TO HOME OR SELFCARE Is pt being admited?: No Does the pt Need Aspirin: No Condition: Stable Instructions: Chest Pain (ED), Cervical Radiculopathy (ED), Degenerative Disc Disease (ED) Additional Instructions: Please follow up with primary care doctor and if he do not have a primary care d octor follow-up at [facility]. Follow-up with ladies' locker room attendant and orthopedic doctor as instructed. See discharge instruction paperwork for details Take Naproxen as needed for pain. If his symptoms worsens or your chest pain returns return to the ED as [facility] as otherwise follow up as instructed Prescriptions: Naproxen [Naprosyn] 500 mg PO BID PRN #12 tablet PRN Reason: abdominal cramping Referrals: [facility] [Outside] - 04/11/18 DAISY MICHEL MD [Staff Physician] - 04/11/18 ANDRY IL MD [Staff Physician] - 04/11/18 Forms: Work/School Release Form(ED)
[2018-04-09 20:55] LABS: BUN/Creatinine Ratio 9; Blood Urea Nitrogen 9 mg/dL (9-20); Calcium 8.8 mg/dL (8.4-10.2); Hemolysis Index 6
--- NOTE | 2018-04-09 21:39 | XRay Report ---
FINAL REPORT PROCEDURE: XR SPINE CERVICAL 2-3V TECHNIQUE: Cervical spine, three views HISTORY: C-spine pain COMPARISON: No prior studies are available for comparison. FINDINGS: Vertebral body heights and alignment are maintained. There are degenerative disc changes at C4-5 and C5-6, with anterior osteophyte formation. Prevertebral soft tissues are within normal limits. IMPRESSION: No acute osseous abnormality is seen
== END 2018-04-09 22:15 | disposition home or self-care (01) ==
LOC: ED 19:04
DX: R07.89 Other chest pain (principal); M50.10 Cervical disc disorder with radiculopathy, unspecified cervical region; F17.200 Nicotine dependence, unspecified, uncomplicated
CPT/HCPCS: 36415; 72040; 80048; 84484; 93005; 93010; 99284; J7512

== ENCOUNTER 2019-01-24 13:23 | Emergency (ER) | payer SELFPAY ==
[2019-01-24 14:47] LABS: Alanine Aminotransferase 124 units/L (7-56); Albumin 4.8 g/dL (3.9-5); BUN/Creatinine Ratio 15; Blood Urea Nitrogen 9 mg/dL (9-20); Calcium 8.8 mg/dL (8.4-10.2); Hemolysis Index 16
[2019-01-24 14:53] LABS: Basophils % (Auto) 0.7 % (0.0-1.8); Eosinophils # (Auto) 0.1 K/mm3 (0.0-0.4); Eosinophils % (Auto) 1.6 % (0.0-4.3); Hematocrit 45.5 % (35.5-45.6); Hemoglobin 14.8 gm/dl (11.8-15.2); Lymphocytes % (Auto) 46.3 % (13.4-35.0); Mean Corpuscular HGB Conc 32 % (32-34); Mean Corpuscular Volume 99 fl (84-94); Monocytes # (Auto) 0.5 K/mm3 (0.0-0.8); Monocytes % (Auto) 8.4 % (0.0-7.3); Platelet Count 219 K/mm3 (140-440); Red Blood Count 4.58 M/mm3 (3.65-5.03); Red Cell Distribution Width 14.4 % (13.2-15.2)
--- NOTE | 2019-01-24 15:47 | Emergency Department Report ---
ED Altered Mental Status HPI - General Chief Complaint: Alcohol Stated Complaint: ETOH Time Seen by Provider: 01/24/19 15:05 Source: EMS Mode of arrival: Stretcher Limitations: Altered Mental Status (alcohol intoxication) - History of Present Illness Initial Comments: ER nurse reports EMS picked up patient for altered mental status. Reports patient fell in the parking lot. Reports patient did smell of alcohol. MD Complaint: altered mental status Context: alcohol abuse Associated Symptoms: denies other symptoms. denies: chest pain, cough, diaphoresis, fever/chills, headaches, loss of appetite, malaise, nausea/vomiting, rash, seizure, shortness of breath, syncope, weakness, foul smelling urine, difficulty walking, diarrhea, incontinence - Related Data Previous Rx's Medication Instructions Recorded Last Taken Type Amoxicillin [Amoxicillin TAB] 875 mg PO BID #20 tablet 11/29/14 Unknown Rx raNITIdine HCl [Zantac] 150 mg PO Q12H #60 tablet 01/04/15 Unknown Rx Famotidine [Pepcid] 20 mg PO BID #30 tablet 09/04/15 Unknown Rx amLODIPine [Norvasc] 5 mg PO DAILY #15 tab 09/04/15 Unknown Rx Cyclobenzaprine [Flexeril] 10 mg PO TID PRN #20 tablet 06/06/16 Unknown Rx HYDROcodone/ACETAMINOPHEN [Vicodin 1 tab PO BID PRN #20 tablet 06/06/16 Unknown Rx HP 10-300 mg TAB] Acetaminophen [Tylenol] 975 mg PO QID PRN #60 capsule 11/19/17 Unknown Rx Cyclobenzaprine [Flexeril] 10 mg PO TID PRN #30 tablet 11/19/17 Unknown Rx Menthol/Camphor [[place] 1 applicatio TP TID PRN #1 tube 11/19/17 Unknown Rx Ointment] cephALEXin [Keflex] 500 mg PO Q8HR #21 cap 12/26/17 Unknown Rx Naproxen [Naprosyn] 500 mg PO BID PRN #12 tablet 04/09/18 Unknown Rx Allergies Allergy/AdvReac Type Severity Reaction Status Date / Time No Known Allergies Allergy Verified 08/09/17 02:54 ED Review of Systems ROS: Stated complaint: ETOH Other details as noted in HPI Comment: Unobtainable due to pts medical conditions (altered mental status) Other: GENERAL: No weight change, fatigue, fever, chills, or night sweats SKIN: No changes in skin or hair, no itching, no rashes, no jaundice HEAD: No trauma, headache, or visual changes EYES: No blurriness, tearing, itching, acute visual loss, conjunctival discoloration, or scleral icterus EARS: No hearing loss, tinnitus, vertigo, or earache NOSE: No rhinorrhea, stuffiness, sneezing, itching, or epistaxis MOUTH: No bleeding gums, hoarseness, sore throat, or swelling CARDIAC: No new murmur, chest pain, palpitations, dyspnea on exertion, orth opnea, PND, or edema RESPIRATORY: No shortness of breath, wheeze, cough, sputum production, hemoptys is, pneumonia, asthma, bronchitis, or emphysema GI: No change in appetite, nausea, vomiting, dysphagia, diarrhea, constipation, hematemesis, melena, hematochezia, or abdominal pain URINARY: No frequency, urgency, polyuria, dysuria, hematuria, or incontinence MUSCULOSKELETAL: No muscle weakness, joint stiffness, decrease in range of motion, redness, swelling NEUROLOGIC: No headache, syncope, loss of sensation, numbness, tingling, tremors, weakness, paralysis, seizures HEMATOLOGIC: No anemia, easy bruising, bleeding, petechiae, or purpura ENDOCRINE: No hot or cold intolerance, sweating, polyuria, polydipsia or, polyphagia no thyroid problems PSYCHIATRIC: No change in mood, no anxiety, no depression ED Past Medical Hx - Past Medical History Hx Renal Disease: Yes (pt denies at present) Hx HIV: No Additional medical history: Alcoholism,gout - Surgical History Past Surgical History?: No Additional Surgical History: YOUSIF - Social History Smoking Status: Never Smoker Substance Use Type: Alcohol - Medications Home Medications: Home Medications Medication Instructions Recorded Confirmed Last Taken Type Amoxicillin [Amoxicillin TAB] 875 mg PO BID #20 tablet 11/29/14 Unknown Rx raNITIdine HCl [Zantac] 150 mg PO Q12H #60 tablet 01/04/15 Unknown Rx Famotidine [Pepcid] 20 mg PO BID #30 tablet 09/04/15 Unknown Rx amLODIPine [Norvasc] 5 mg PO DAILY #15 tab 09/04/15 Unknown Rx Cyclobenzaprine [Flexeril] 10 mg PO TID PRN #20 tablet 03/08/17 Unknown Rx HYDROcodone/ACETAMINOPHEN [Vicodin 1 tab PO BID PRN #20 tablet 06/06/16 Unknown Rx HP 10-300 mg TAB] Acetaminophen [Tylenol] 975 mg PO QID PRN #60 capsule 11/19/17 Unknown Rx Cyclobenzaprine [Flexeril] 10 mg PO TID PRN #30 tablet 11/19/17 Unknown Rx Menthol/Camphor [[place] 1 applicatio TP TID PRN #1 tube 11/19/17 Unknown Rx Ointment] cephALEXin [Keflex] 500 mg PO Q8HR #21 cap 12/26/17 Unknown Rx Naproxen [Naprosyn] 500 mg PO BID PRN #12 tablet 04/09/18 Unknown Rx ED Physical Exam - General Limitations: No Limitations - Other Other exam information: GENERAL: Patient in no acute distress HEAD: Normocephalic, atraumatic EYES: PERRLA, EOM intact, no scleral icterus, no conjunctival hemorrhage, visual poe and acuity wnl NOSE: No tenderness, discharge, sinus tenderness MOUTH: No erythema, bleeding, exudate HEART: Regular rate and rhythm, no murmur, S1-S2 are auscultated, no edema, pulses are symmetric LUNGS: No respiratory distress. Bilateral breath sounds, No tachypnea, No ret ractions, No wheezing, rales, rhonchi ABDOMEN: Normal bowel sounds, abdomen soft, no tenderness, no rebound, no guarding, no distention, no masses, no CVA tenderness MUSCULOSKELETAL: Normal joint range of motion, no redness, no swelling, no tenderness NEUROLOGIC: GCS 15, Alert and Oriented, Cranial nerves intact, normal sensation, normal strength, no cerebellar deficit, NIHSS 0 SKIN: Skin is warm and dry, no wounds, no rashes - Assessment Assessment Interval: Baseline - Level of Consciousness 1a. Level of Consciousness: alert/keenly responsive - LOC Questions 1b. LOC Questions: answers both correctly - LOC Command 1c. LOC Commands: performs tasks correctly - Best Gaze 2. Best Gaze: normal - Visual 3. Visual: no visual loss - Facial Palsy 4. Facial Palsy: normal symmetrical movement - Motor Arm 5a. Motor Arm Left: no drift 5b. Motor Arm Right: no drift - Motor Leg 6a. Motor Leg Left: no drift 6b. Motor Leg Right: no drift - Limb Ataxia 7. Limb Ataxia: absent - Sensory 8. Sensory: normal - Best Language 9. Best Language: no aphasia - Dysarthria 10. Dysarthria: normal - Extinction and Inattention 11. Extinction/Inattention: no abnormality - Scoring Total Score: 0 Stroke Severity: No Stroke Symptoms ED Course Vital Signs 01/24/19 01/24/19 01/24/19 13:44 13:45 13:56 Temperature 98.5 F Pulse Rate 81 80 85 Respiratory 14 11 L 17 Rate Blood Pressure 138/93 136/92 132/66 Blood Pressure [Right] O2 Sat by Pulse 95 100 Oximetry 01/24/19 01/24/19 01/24/19 14:00 14:15 14:25 Temperature Pulse Rate 69 Respiratory 13 18 Rate Blood Pressure 139/84 139/84 Blood Pressure [Right] O2 Sat by Pulse 97 93 Oximetry 01/24/19 01/24/19 01/24/19 14:31 14:45 14:49 Temperature Pulse Rate 75 77 60 Respiratory 16 12 18 Rate Blood Pressure 139/84 140/74 Blood Pressure 140/74 [Right] O2 Sat by Pulse 100 Oximetry 01/24/19 01/24/19 01/24/19 15:00 15:15 15:30 Temperature Pulse Rate 77 85 86 Respiratory 11 L 12 14 Rate Blood Pressure 131/72 126/75 128/73 Blood Pressure [Right] O2 Sat by Pulse Oximetry 01/24/19 01/24/19 01/24/19 16:00 16:16 16:30 Temperature Pulse Rate 95 H 67 78 Respiratory 13 12 12 Rate Blood Pressure 122/73 122/73 122/73 Blood Pressure [Right] O2 Sat by Pulse 98 98 97 Oximetry 01/24/19 01/24/19 01/24/19 16:46 17:00 17:16 Temperature Pulse Rate 83 75 Respiratory 13 14 12 Rate Blood Pressure 122/73 122/73 122/73 Blood Pressure [Right] O2 Sat by Pulse 98 97 98 Oximetry 01/24/19 01/24/19 01/24/19 17:30 17:46 18:00 Temperature Pulse Rate 96 H 87 91 H Respiratory 15 15 15 Rate Blood Pressure 122/73 122/73 122/73 Blood Pressure [Right] O2 Sat by Pulse 93 95 96 Oximetry 01/24/19 01/24/19 01/24/19 18:16 18:30 18:46 Temperature Pulse Rate Respiratory Rate Blood Pressure 122/73 122/73 139/86 Blood Pressure [Right] O2 Sat by Pulse 92 97 95 Oximetry 01/24/19 01/24/19 01/24/19 19:00 19:15 19:30 Temperature 98.6 F Pulse Rate 68 90 Respiratory 14 22 Rate Blood Pressure 136/95 128/70 118/70 Blood Pressure 128/70 [Right] O2 Sat by Pulse 97 96 98 Oximetry 01/24/19 01/24/19 01/24/19 19:46 20:00 20:15 Temperature Pulse Rate 81 65 Respiratory 24 22 Rate Blood Pressure 154/83 170/99 138/73 Blood Pressure [Right] O2 Sat by Pulse 96 93 98 Oximetry 01/24/19 01/24/19 01/24/19 20:30 20:45 21:00 Temperature Pulse Rate 87 75 74 Respiratory 17 14 15 Rate Blood Pressure 138/73 127/72 141/81 Blood Pressure [Right] O2 Sat by Pulse 98 96 97 Oximetry 01/24/19 01/24/19 01/24/19 21:16 21:30 21:45 Temperature Pulse Rate Respiratory Rate Blood Pressure 158/94 136/78 151/99 Blood Pressure [Right] O2 Sat by Pulse 96 100 97 Oximetry 01/24/19 01/24/19 01/24/19 22:00 22:15 22:28 Temperature Pulse Rate 68 Respiratory Rate Blood Pressure 139/75 139/75 Blood Pressure [Right] O2 Sat by Pulse 99 99 Oximetry 01/24/19 01/24/19 01/24/19 22:30 22:45 23:00 Temperature Pulse Rate Respiratory Rate Blood Pressure 156/78 154/80 154/90 Blood Pressure [Right] O2 Sat by Pulse 99 98 99 Oximetry 01/24/19 01/24/19 01/24/19 23:15 23:30 23:45 Temperature Pulse Rate Respiratory Rate Blood Pressure 150/83 153/86 153/85 Blood Pressure [Right] O2 Sat by Pulse 98 97 98 Oximetry 01/25/19 01/25/19 01/25/19 00:22 00:30 00:46 Temperature Pulse Rate 92 H Respiratory 14 17 16 Rate Blood Pressure 150/83 156/91 153/86 Blood Pressure [Right] O2 Sat by Pulse 98 99 Oximetry 01/25/19 01/25/1901/25/19 01:00 01:16 02:00 Temperature Pulse Rate Respiratory 16 12 17 Rate Blood Pressure 153/85 156/91 Blood Pressure [Right] O2 Sat by Pulse 99 96 Oximetry 01/25/19 01/25/19 04:00 06:00 Temperature Pulse Rate 71 72 Respiratory 17 18 Rate Blood Pressure 166/91 Blood Pressure 164/97 [Right] O2 Sat by Pulse 96 99 Oximetry - Lab Data Result diagrams: 01/24/19 14:15 01/24/19 14:15 Lab Results 01/24/19 01/24/19 01/24/19 Range/Units 14:15 14:15 14:15 WBC 6.5 (4.5-11.0) K/mm3 RBC 4.58 (3.65-5.03) M/mm3 Hgb 14.8 (11.8-15.2) gm/dl Hct 45.5 (35.5-45.6) % MCV 99 H (84-94) fl MCH 32 (28-32) pg MCHC 32 (32-34) % RDW 14.4 (13.2-15.2) % Plt Count 219 (140-440) K/mm3 Lymph % (Auto) 46.3 H (13.4-35.0) % [place] % (Auto) 8.4 H (0.0-7.3) % Eos % (Auto) 1.6 (0.0-4.3) % Baso % (Auto) 0.7 (0.0-1.8) % Lymph # 3.0 (1.2-5.4) K/mm3 [place] # 0.5 (0.0-0.8) K/mm3 Eos # 0.1 (0.0-0.4) K/mm3 Baso # 0.0 (0.0-0.1) K/mm3 Seg Neutrophils % 43.0 (40.0-70.0) % Seg Neutrophils # 2.8 (1.8-7.7) K/mm3 PT (12.2-14.9) Sec. INR (0.87-1.13) APTT (24.2-36.6) Sec. Sodium 145 (137-145) mmol/L Potassium 4.1 (3.6-5.0) mmol/L Chloride 105.3 (98-107) mmol/L Carbon Dioxide 22 (22-30) mmol/L Anion Gap 22 mmol/L BUN 9 (9-20) mg/dL Creatinine 0.6 L (0.8-1.5) mg/dL Estimated GFR > 60 ml/min BUN/Creatinine Ratio 15 % Glucose 93 (75-100) mg/dL Lactic Acid (0.7-2.0) mmol/L Calcium 8.8 (8.4-10.2) mg/dL Total Bilirubin 0.20 (0.1-1.2) mg/dL AST 122 H (5-40) units/L ALT 124 H (7-56) units/L Alkaline Phosphatase 78 (35-129) units/L Total Creatine Kinase (55-170) units/L Troponin T < 0.010 (0.00-0.029) ng/mL Total Protein 8.6 H (6.3-8.2) g/dL Albumin 4.8 (3.9-5) g/dL Albumin/Globulin Ratio 1.3 % Urine Color (Yellow) Urine Turbidity (Clear) Urine pH (5.0-7.0) Ur Specific [place] (1.003-1.030) Urine Protein (Negative) mg/dL Urine Glucose (UA) (Negative) mg/dL Urine Ketones (Negative) mg/dL Urine Blood (Negative) Urine Nitrite (Negative) Urine Bilirubin (Negative) Urine Urobilinogen (<2.0) mg/dL Ur Leukocyte Esterase (Negative) Urine WBC (Auto) (0.0-6.0) /HPF Urine RBC (Auto) (0.0-6.0) /HPF Urine Bacteria (Auto) (Negative) /HPF Urine Mucus /HPF Urine Opiates Screen Urine Methadone Screen Ur Barbiturates Screen Ur Phencyclidine Scrn Ur Amphetamines Screen U Benzodiazepines Scrn Urine Cocaine Screen U Marijuana (THC) Screen Drugs of Abuse Note Plasma/Serum Alcohol (0-0.07) % 01/24/19 01/24/19 01/24/19 Range/Units 14:15 15:44 15:44 WBC (4.5-11.0) K/mm3 RBC (3.65-5.03) M/mm3 Hgb (11.8-15.2) gm/dl Hct (35.5-45.6) % MCV (84-94) fl MCH (28-32) pg MCHC (32-34) % RDW (13.2-15.2) % Plt Count (140-440) K/mm3 Lymph % (Auto) (13.4-35.0) % [place] % (Auto) (0.0-7.3) % Eos % (Auto) (0.0-4.3) % Baso % (Auto) (0.0-1.8) % Lymph # (1.2-5.4) K/mm3 [place] # (0.0-0.8) K/mm3 Eos # (0.0-0.4) K/mm3 Baso # (0.0-0.1) K/mm3 Seg Neutrophils % (40.0-70.0) % Seg Neutrophils # (1.8-7.7) K/mm3 PT (12.2-14.9) Sec. INR (0.87-1.13) APTT (24.2-36.6) Sec. Sodium (137-145) mmol/L Potassium (3.6-5.0) mmol/L Chloride (98-107) mmol/L Carbon Dioxide (22-30) mmol/L Anion Gap mmol/L BUN (9-20) mg/dL Creatinine (0.8-1.5) mg/dL Estimated GFR ml/min BUN/Creatinine Ratio % Glucose (75-100) mg/dL Lactic Acid (0.7-2.0) mmol/L Calcium (8.4-10.2) mg/dL Total Bilirubin (0.1-1.2) mg/dL AST (5-40) units/L ALT (7-56) units/L Alkaline Phosphatase (35-129) units/L Total Creatine Kinase (55-170) units/L Troponin T (0.00-0.029) ng/mL Total Protein (6.3-8.2) g/dL Albumin (3.9-5) g/dL Albumin/Globulin Ratio % Urine Color Straw (Yellow) Urine Turbidity Clear (Clear) Urine pH 5.0 (5.0-7.0) Ur Specific [place] 1.004 (1.003-1.030) Urine Protein <15 mg/dl (Negative) mg/dL Urine Glucose (UA) Neg (Negative) mg/dL Urine Ketones Neg (Negative) mg/dL Urine Blood Neg (Negative) Urine Nitrite Neg (Negative) Urine Bilirubin Neg (Negative) Urine Urobilinogen < 2.0 (<2.0) mg/dL Ur Leukocyte Esterase Neg (Negative) Urine WBC (Auto) < 1.0 (0.0-6.0) /HPF Urine RBC (Auto) 2.0 (0.0-6.0) /HPF Urine Bacteria (Auto) 1+ (Negative) /HPF Urine Mucus Few /HPF Urine Opiates Screen Presumptive negative Urine Methadone Screen Presumptive negative Ur Barbiturates Screen Presumptive negative Ur Phencyclidine Scrn Presumptive negative Ur Amphetamines Screen Presumptive negative U Benzodiazepines Scrn Presumptive negative Urine Cocaine Screen Presumptive negative U Marijuana (THC) Screen Presumptive negative Drugs of Abuse Note Disclamer Plasma/Serum Alcohol 0.45 H (0-0.07) % 01/24/19 01/24/19 01/24/19 Range/Units 17:16 17:16 17:16 WBC (4.5-11.0) K/mm3 RBC (3.65-5.03) M/mm3 Hgb (11.8-15.2) gm/dl Hct (35.5-45.6) % MCV (84-94) fl MCH (28-32) pg MCHC (32-34) % RDW (13.2-15.2) % Plt Count (140-440) K/mm3 Lymph % (Auto) (13.4-35.0) % [place] % (Auto) (0.0-7.3) % Eos % (Auto) (0.0-4.3) % Baso % (Auto) (0.0-1.8) % Lymph # (1.2-5.4) K/mm3 [place] # (0.0-0.8) K/mm3 Eos # (0.0-0.4) K/mm3 Baso # (0.0-0.1) K/mm3 Seg Neutrophils % (40.0-70.0) % Seg Neutrophils # (1.8-7.7) K/mm3 PT 12.7 (12.2-14.9) Sec. INR 0.96 (0.87-1.13) APTT 25.2 (24.2-36.6) Sec. Sodium (137-145) mmol/L Potassium (3.6-5.0) mmol/L Chloride (98-107) mmol/L Carbon Dioxide (22-30) mmol/L Anion Gap mmol/L BUN (9-20) mg/dL Creatinine (0.8-1.5) mg/dL Estimated GFR ml/min BUN/Creatinine Ratio % Glucose (75-100) mg/dL Lactic Acid 4.30 H* (0.7-2.0) mmol/L Calcium (8.4-10.2) mg/dL Total Bilirubin (0.1-1.2) mg/dL AST (5-40) units/L ALT (7-56) units/L Alkaline Phosphatase (35-129) units/L Total Creatine Kinase 264 H (55-170) units/L Troponin T < 0.010 (0.00-0.029) ng/mL Total Protein (6.3-8.2) g/dL Albumin (3.9-5) g/dL Albumin/Globulin Ratio % Urine Color (Yellow) Urine Turbidity (Clear) Urine pH (5.0-7.0) Ur Specific [place] (1.003-1.030) Urine Protein (Negative) mg/dL Urine Glucose (UA) (Negative) mg/dL Urine Ketones (Negative) mg/dL Urine Blood (Negative) Urine Nitrite (Negative) Urine Bilirubin (Negative) Urine Urobilinogen (<2.0) mg/dL Ur Leukocyte Esterase (Negative) Urine WBC (Auto) (0.0-6.0) /HPF Urine RBC (Auto) (0.0-6.0) /HPF Urine Bacteria (Auto) (Negative) /HPF Urine Mucus /HPF Urine Opiates Screen Urine Methadone Screen Ur Barbiturates Screen Ur Phencyclidine Scrn Ur Amphetamines Screen U Benzodiazepines Scrn Urine Cocaine Screen U Marijuana (THC) Screen Drugs of Abuse Note Plasma/Serum Alcohol (0-0.07) % 01/24/19 01/24/19 01/24/19 Range/Units 20:26 20:26 21:33 WBC (4.5-11.0) K/mm3 RBC (3.65-5.03) M/mm3 Hgb (11.8-15.2) gm/dl Hct (35.5-45.6) % MCV (84-94) fl MCH (28-32) pg MCHC (32-34) % RDW (13.2-15.2) % Plt Count (140-440) K/mm3 Lymph % (Auto) (13.4-35.0) % [place] % (Auto) (0.0-7.3) % Eos % (Auto) (0.0-4.3) % Baso % (Auto) (0.0-1.8) % Lymph # (1.2-5.4) K/mm3 [place] # (0.0-0.8) K/mm3 Eos # (0.0-0.4) K/mm3 Baso # (0.0-0.1) K/mm3 Seg Neutrophils % (40.0-70.0) % Seg Neutrophils # (1.8-7.7) K/mm3 PT (12.2-14.9) Sec. INR (0.87-1.13) APTT (24.2-36.6) Sec. Sodium (137-145) mmol/L Potassium (3.6-5.0) mmol/L Chloride (98-107) mmol/L Carbon Dioxide (22-30) mmol/L Anion Gap mmol/L BUN (9-20) mg/dL Creatinine (0.8-1.5) mg/dL Estimated GFR ml/min BUN/Creatinine Ratio % Glucose (75-100) mg/dL Lactic Acid 3.90 H* 7.60 H* (0.7-2.0) mmol/L Calcium (8.4-10.2) mg/dL Total Bilirubin (0.1-1.2) mg/dL AST (5-40) units/L ALT (7-56) units/L Alkaline Phosphatase (35-129) units/L Total Creatine Kinase (55-170) units/L Troponin T (0.00-0.029) ng/mL Total Protein (6.3-8.2) g/dL Albumin (3.9-5) g/dL Albumin/Globulin Ratio % Urine Color (Yellow) Urine Turbidity (Clear) Urine pH (5.0-7.0) Ur Specific [place] (1.003-1.030) Urine Protein (Negative) mg/dL Urine Glucose (UA) (Negative) mg/dL Urine Ketones (Negative) mg/dL Urine Blood (Negative) Urine Nitrite (Negative) Urine Bilirubin (Negative) Urine Urobilinogen (<2.0) mg/dL Ur Leukocyte Esterase (Negative) Urine WBC (Auto) (0.0-6.0) /HPF Urine RBC (Auto) (0.0-6.0) /HPF Urine Bacteria (Auto) (Negative) /HPF Urine Mucus /HPF Urine Opiates Screen Urine Methadone Screen Ur Barbiturates Screen Ur Phencyclidine Scrn Ur Amphetamines Screen U Benzodiazepines Scrn Urine Cocaine Screen U Marijuana (THC) Screen Drugs of Abuse Note Plasma/Serum Alcohol 0.32 H (0-0.07) % 01/24/19 01/25/19 01/25/19 Range/Units Unknown 05:31 05:31 WBC (4.5-11.0) K/mm3 RBC (3.65-5.03) M/mm3 Hgb (11.8-15.2) gm/dl Hct (35.5-45.6) % MCV (84-94) fl MCH (28-32) pg MCHC (32-34) % RDW (13.2-15.2) % Plt Count (140-440) K/mm3 Lymph % (Auto) (13.4-35.0) % [place] % (Auto) (0.0-7.3) % Eos % (Auto) (0.0-4.3) % Baso % (Auto) (0.0-1.8) % Lymph # (1.2-5.4) K/mm3 [place] # (0.0-0.8) K/mm3 Eos # (0.0-0.4) K/mm3 Baso # (0.0-0.1) K/mm3 Seg Neutrophils % (40.0-70.0) % Seg Neutrophils # (1.8-7.7) K/mm3 PT (12.2-14.9) Sec. INR (0.87-1.13) APTT (24.2-36.6) Sec. Sodium (137-145) mmol/L Potassium (3.6-5.0) mmol/L Chloride (98-107) mmol/L Carbon Dioxide (22-30) mmol/L Anion Gap mmol/L BUN (9-20) mg/dL Creatinine (0.8-1.5) mg/dL Estimated GFR ml/min BUN/Creatinine Ratio % Glucose (75-100) mg/dL Lactic Acid 7.30 H* 2.40 H* (0.7-2.0) mmol/L Calcium (8.4-10.2) mg/dL Total Bilirubin (0.1-1.2) mg/dL AST (5-40) units/L ALT (7-56) units/L Alkaline Phosphatase (35-129) units/L Total Creatine Kinase (55-170) units/L Troponin T (0.00-0.029) ng/mL Total Protein (6.3-8.2) g/dL Albumin (3.9-5) g/dL Albumin/Globulin Ratio % Urine Color (Yellow) Urine Turbidity (Clear) Urine pH (5.0-7.0) Ur Specific [place] (1.003-1.030) Urine Protein (Negative) mg/dL Urine Glucose (UA) (Negative) mg/dL Urine Ketones (Negative) mg/dL Urine Blood (Negative) Urine Nitrite (Negative) Urine Bilirubin (Negative) Urine Urobilinogen (<2.0) mg/dL Ur Leukocyte Esterase (Negative) Urine WBC (Auto) (0.0-6.0) /HPF Urine RBC (Auto) (0.0-6.0) /HPF Urine Bacteria (Auto) (Negative) /HPF Urine Mucus /HPF Urine Opiates Screen Urine Methadone Screen Ur Barbiturates Screen Ur Phencyclidine Scrn Ur Amphetamines Screen U Benzodiazepines Scrn Urine Cocaine Screen U Marijuana (THC) Screen Drugs of Abuse Note Plasma/Serum Alcohol 0.04 (0-0.07) % 01/25/19 Range/Units 06:34 WBC (4.5-11.0) K/mm3 RBC (3.65-5.03) M/mm3 Hgb (11.8-15.2) gm/dl Hct (35.5-45.6) % MCV (84-94) fl MCH (28-32) pg MCHC (32-34) % RDW (13.2-15.2) % Plt Count (140-440) K/mm3 Lymph % (Auto) (13.4-35.0) % [place] % (Auto) (0.0-7.3) % Eos % (Auto) (0.0-4.3) % Baso % (Auto) (0.0-1.8) % Lymph # (1.2-5.4) K/mm3 [place] # (0.0-0.8) K/mm3 Eos # (0.0-0.4) K/mm3 Baso # (0.0-0.1) K/mm3 Seg Neutrophils % (40.0-70.0) % Seg Neutrophils # (1.8-7.7) K/mm3 PT (12.2-14.9) Sec. INR (0.87-1.13) APTT (24.2-36.6) Sec. Sodium (137-145) mmol/L Potassium (3.6-5.0) mmol/L Chloride (98-107) mmol/L Carbon Dioxide (22-30) mmol/L Anion Gap mmol/L BUN (9-20) mg/dL Creatinine (0.8-1.5) mg/dL Estimated GFR ml/min BUN/Creatinine Ratio % Glucose (75-100) mg/dL Lactic Acid 1.90 (0.7-2.0) mmol/L Calcium (8.4-10.2) mg/dL Total Bilirubin (0.1-1.2) mg/dL AST (5-40) units/L ALT (7-56) units/L Alkaline Phosphatase (35-129) units/L Total Creatine Kinase (55-170) units/L Troponin T (0.00-0.029) ng/mL Total Protein (6.3-8.2) g/dL Albumin (3.9-5) g/dL Albumin/Globulin Ratio % Urine Color (Yellow) Urine Turbidity (Clear) Urine pH (5.0-7.0) Ur Specific [place] (1.003-1.030) Urine Protein (Negative) mg/dL Urine Glucose (UA) (Negative) mg/dL Urine Ketones (Negative) mg/dL Urine Blood (Negative) Urine Nitrite (Negative) Urine Bilirubin (Negative) Urine Urobilinogen (<2.0) mg/dL Ur Leukocyte Esterase (Negative) Urine WBC (Auto) (0.0-6.0) /HPF Urine RBC (Auto) (0.0-6.0) /HPF Urine Bacteria (Auto) (Negative) /HPF Urine Mucus /HPF Urine Opiates Screen Urine Methadone Screen Ur Barbiturates Screen Ur Phencyclidine Scrn Ur Amphetamines Screen U Benzodiazepines Scrn Urine Cocaine Screen U Marijuana (THC) Screen Drugs of Abuse Note Plasma/Serum Alcohol (0-0.07) % Interpretation: no acute changes - Medical Decision Making Patient comfortable. On signed 2012. Patient sober at 0515. Patient comfortable. Midlevel ordered lactic acid independent of consultation with physician. Plan repeat lactic acid with repeat alcohol at 0515. Thought lactic acid could be related to alcohol intoxication. Dr. Kenny agrees to follow up repeat labs. Plan if LA is elevated on repeat 5am labs admit for further evaluation. Critical care attestation.: If time is entered above; I have spent that time in minutes in the direct care of this critically ill patient, excluding procedure time. ED Disposition Clinical Impression: Alcohol abuse Disposition: DC-01 TO HOME OR SELFCARE Is pt being admited?: No Condition: Stable Instructions: Abuse of Alcohol (ED) Referrals: PRIMARY CARE, [Primary Care Provider] - 3-5 Days
--- NOTE | 2019-01-24 16:25 | XRay Report ---
CHEST 1 VIEW INDICATION: Altered mental status. COMPARISON: Chest x-ray from 12/26/2017 FINDINGS: Support devices: None. Heart: Within normal limits. Lungs/Pleura: No acute air space or interstitial disease. Additional findings: None. IMPRESSION: 1. No acute findings. Signer Name: Rik Noe MD Signed: 01/24/2019 4:21 PM Workstation Name: [id number]
--- NOTE | 2019-01-24 17:09 | Cat Scan Report ---
CT head/brain wo con INDICATION: Altered mental status. TECHNIQUE: Routine CT head without contrast. All CT scans at this location are performed using CT dos e reduction for ALARA by means of automated exposure control. COMPARISON: Head CT dated 12/26/2017. FINDINGS: BRAIN / INTRACRANIAL CONTENTS: No acute hemorrhage, mass effect, midline shift, or hydrocephalus. No appreciable acute large territorial or lacunar infarct. No chronic infarct. Age-commensurate ventricu lar and cisternal/sulcal prominence. Stable mild chronic small vessel ischemic change in the deep cer ebral white matter. ORBITS: No significant abnormality of visualized orbits. SINUSES / MASTOIDS: No significant abnormality of visualized sinuses and mastoid air cells. ADDITIONAL FINDINGS: None. IMPRESSION: 1. No acute intracranial abnormality. No adverse change from the prior exam. Signer Name: Steven Sheikh MD Signed: 01/24/2019 5:05 PM Workstation Name: [id number]
[2019-01-24 18:06] LABS: INR 0.96 (0.87-1.13)
[2019-01-24 18:07] LABS: Partial Thromboplastin Time 25.2 Sec. (24.2-36.6)
[2019-01-24] MEDS ORDERED: SODIUM CHLORIDE 0.9% 1000 ML 2,000 ML IV ONE (18:27)
[2019-01-24 18:42] LABS: Bilirubin,Urine NEG (Negative); Blood,Urine NEG (Negative); Color,Urine Straw (Yellow); Protein,Urine <15 mg/dL mg/dL (Negative); Urobilinogen,Urine < 2.0 mg/dL (<2.0)
[2019-01-24 18:43] LABS: Bacteria,Urine 1+ /HPF (Negative); Mucus,Urine FEW /HPF; WBC,Urine < 1.0 /HPF (0.0-6.0)
[2019-01-24 18:47] LABS: Amphetamine Screen,Urine PRESUMPTIVE NEGATIVE; Benzodiazepines Screen,Urine PRESUMPTIVE NEGATIVE; Cannabinoid Screen,Urine PRESUMPTIVE NEGATIVE; Cocaine Screen,Urine PRESUMPTIVE NEGATIVE; Methadone Screen,Urine PRESUMPTIVE NEGATIVE; Opiate Screen,Urine PRESUMPTIVE NEGATIVE
[2019-01-24] MEDS ORDERED: SODIUM CHLORIDE 0.9% 1000 ML 1,000 ML IV ONE (21:37)
[2019-01-25] MEDS ORDERED: LORazepam 2 MG/ML VIAL IV PRN ×3 (04:24)
[2019-01-25] MEDS ORDERED: LORazepam 2 MG/ML VIAL IV ONE (04:28)
[2019-01-25] MEDS ORDERED: SODIUM CHLORIDE 0.9% 1000 ML 1,000 ML IV ONE (04:34)
[2019-01-25 06:02] VITALS: BP 164/97
== END 2019-01-25 09:16 | disposition home or self-care (01) ==
LOC: EEVIPCON 13:23 → ED 13:23
DX: F10.129 Alcohol abuse with intoxication, unspecified (principal); R41.82 Altered mental status, unspecified
CPT/HCPCS: 36415; 70450; 71045; 80053; 80307; 81001; 82140; 82550; 84484; 85025; 85610; 85730; 93005; 93010; 96361; 96374; 99285; J2060; J7030; 80320; G0480